=== PATIENT | male | born 1950 | race Caucasian/White ===

== ENCOUNTER 2020-09-26 14:18 | Emergency (ER) | payer MEDICARE, OTHER ==
[~2020-09-26] VITALS: Ht 172.7 cm; Wt 56.6 kg
[2020-09-26 14:45] LABS: HEMATOCRIT 38 % (40-54); HEMOGLOBIN 13.3 G/DL (13.3-17.7); MEAN CORPUSCULAR HEMOGLOBIN 33 PG (25-34); MEAN CORPUSCULAR HGB CONC 35 G/DL (32-36); MEAN CORPUSCULAR VOLUME 94 FL (80-99); MEAN PLATELET VOLUME 9.4 FL (7.4-10.4); NEUTROPHILS % (AUTO) 81 % (42-75); PLATELET COUNT 313 10^3/uL (130-400); WHITE BLOOD COUNT 14.7 10^3/uL (4.3-11.0)
[2020-09-26] MEDS ORDERED: NS IV 500 ML 500 ML IV ONE (14:45)
[2020-09-26 14:46] LABS: BASOPHILS % (AUTO) 0 % (0-10); EOSINOPHILS # (AUTO) 0.1 10^3/uL (0.0-0.3); EOSINOPHILS % (AUTO) 0 % (0-10); LYMPHOCYTES # (AUTO) 1.5 X 10^3 (1.0-4.0); LYMPHOCYTES % (AUTO) 11 % (12-44); MONOCYTES # (AUTO) 1.1 X 10^3 (0.0-1.0); MONOCYTES % (AUTO) 7 % (0-12)
--- NOTE | 2020-09-26 15:02 | ED Fall/Injury ---
General Chief Complaint: Trauma-Non Activation Stated Complaint: FALL; BACK INJ Nursing Triage Note: see triage note Source: patient Exam Limitations: no limitations History of Present Illness Date Seen by Provider: Sep 26, 2020 Time Seen by Provider: 14:25 Initial Comments Here with report of right posterior rib pain. Seen at urgent care clinic and found to have 2 rib fractures. Radiology recommended further work-up including CT scan due to concerns about air and or pathological fracture. Patient has onset of dementia. He is able answer questions but is a little confused about history and time. Unsure if he hit his head. Denies neck pain. Denies injuries otherwise. Patient was able to ambulate to the room without difficulty. Obviously has tenderness to the right mid posterior chest wall with bruising reported. Occurred: this morning Severity: moderate Injuries/Pain Location: chest, back Context: unknown Loss of Consciousness: no loss of consciousness Modifying Factors: Worse With Movement; Improves With Rest Associated Symptoms (Fall): Headache; No Neck Pain, No Shortness of Air, No Slurred Speech, No Trouble Walking Allergies and Home Medications Allergies Coded Allergies: No Known Drug Allergies (Unverified , 09/26/20) Patient Home Medication List Home Medication List Reviewed: Yes Review of Systems Review of Systems Constitutional: see HPI; No chills, No fever Eyes: No Symptoms Reported Ears, Nose, Mouth, Throat: no symptoms reported Respiratory: No cough, No short of breath Cardiovascular: chest pain (Posterior chest wall on right); No palpitations Gastrointestinal: No abdominal pain, No nausea, No vomiting Genitourinary: no symptoms reported Musculoskeletal: back pain Skin: change in color; No lesions Psychiatric/Neurological: Headache; Denies Weakness Past Dyyvsez-Ksthdj-Qrfvwk Hx Past Med/Social Hx: Reviewed Nursing Past Med/Soc Hx Patient Social History Alcohol Use: Denies Use Smoking Status: Never a Smoker 2nd Hand Smoke Exposure: No Recent Infectious Disease Expo: No Recent Hopitalizations: No Seasonal Allergies Seasonal Allergies: No Past Medical History Surgeries: Yes (bilat hip surgery) Bowel Surgery, Orthopedic, Tonsillectomy Respiratory: No Cardiac: Yes Hypertension Neurological: No Genitourinary: No Gastrointestinal: No Musculoskeletal: No Endocrine: No HEENT: No Cancer: No Psychosocial: No Integumentary: No Family Medical History Reviewed Nursing Family Hx Physical Exam Vital Signs Vital Signs - First Documented 09/26/20 14:20 Temp 36.8 Pulse 86 Resp 16 B/P (MAP) 187/81 (116) Pulse Ox 97 O2 Delivery Room Air Capillary Refill : Less Than 3 Seconds Height, Weight, BMI Height: '" Weight: lbs. oz. kg; 18.00 BMI Method: General Appearance: WD/WN, no apparent distress HEENT: PERRL/EOMI, TMs normal, pharynx normal Neck: full range of motion, supple Cardiovascular: regular rate, rhythm, no murmur Respiratory: lungs clear, other (Tender posterior right chest wall. Bruising noted mid ribs right lateral posterior.) Gastrointestinal: non tender, soft Back: normal inspection, no CVA tenderness, no vertebral tenderness Extremities: non-tender, normal inspection Neurologic/Psychiatric: alert, oriented x 3 Skin: warm/dry, ecchymosis (As noted above) Progress/Results/Core Measures Results/Orders Lab Results Laboratory Tests Test 09/26/20 14:26 09/26/20 15:35 Range/Units White Blood Count 14.7 H 4.3-11.0 10^3/uL Red Blood Count 4.04 L 4.35-5.85 10^6/uL Hemoglobin 13.3 13.3-17.7 G/DL Hematocrit 38 L 40-54 % Mean Corpuscular Volume 94 80-99 FL Mean Corpuscular Hemoglobin 33 25-34 PG Mean Corpuscular Hemoglobin Concent 35 32-36 G/DL Red Cell Distribution Width 12.3 10.0-14.5 % Platelet Count 313 130-400 10^3/uL Mean Platelet Volume 9.4 7.4-10.4 FL Immature Granulocyte % (Auto) 1 % Neutrophils (%) (Auto) 81 H 42-75 % Lymphocytes (%) (Auto) 11 L 12-44 % Monocytes (%) (Auto) 7 0-12 % Eosinophils (%) (Auto) 0 0-10 % Basophils (%) (Auto) 0 0-10 % Neutrophils # (Auto) 12.0 H 1.8-7.8 X 10^3 Lymphocytes # (Auto) 1.5 1.0-4.0 X 10^3 Monocytes # (Auto) 1.1 H 0.0-1.0 X 10^3 Eosinophils # (Auto) 0.1 0.0-0.3 10^3/uL Basophils # (Auto) 0.0 0.0-0.1 10^3/uL Immature Granulocyte # (Auto) 0.1 0.0-0.1 10^3/uL Neutrophils % (Manual) 80 % Lymphocytes % (Manual) 11 % Monocytes % (Manual) 8 % Eosinophils % (Manual) 1 % Sodium Level 135 135-145 MMOL/L Potassium Level 4.1 3.6-5.0 MMOL/L Chloride Level 95 L 98-107 MMOL/L Carbon Dioxide Level 27 21-32 MMOL/L Anion Gap 13 5-14 MMOL/L Blood Urea Nitrogen 16 7-18 MG/DL Creatinine 0.92 0.60-1.30 MG/DL Estimat Glomerular Filtration Rate > 60 BUN/Creatinine Ratio 17 Glucose Level 122 H 70-105 MG/DL Calcium Level 10.1 8.5-10.1 MG/DL Corrected Calcium 9.7 8.5-10.1 MG/DL Total Bilirubin 0.3 0.1-1.0 MG/DL Aspartate Amino Transf (AST/SGOT) 28 5-34 U/L Alanine Aminotransferase (ALT/SGPT) 12 0-55 U/L Alkaline Phosphatase 64 40-136 U/L C-Reactive Protein 0.59 H <0.50 MG/DL Total Protein 7.1 6.4-8.2 GM/DL Albumin 4.5 3.2-4.5 GM/DL Urine Color YELLOW Urine Clarity CLEAR Urine pH 7.0 5-9 Urine Specific Nada 1.015 L 1.016-1.022 Urine Protein NEGATIVE NEGATIVE Urine Glucose (UA) NEGATIVE NEGATIVE Urine Ketones NEGATIVE NEGATIVE Urine Nitrite NEGATIVE NEGATIVE Urine Bilirubin NEGATIVE NEGATIVE Urine Urobilinogen 0.2 < = 1.0 MG/DL Urine Leukocyte Esterase NEGATIVE NEGATIVE Urine RBC (Auto) NEGATIVE NEGATIVE Urine RBC NONE /HPF Urine WBC NONE /HPF Urine Crystals NONE /LPF Urine Bacteria NEGATIVE /HPF Urine Casts NONE /LPF Urine Mucus NEGATIVE /LPF Urine Culture Indicated NO My Orders Orders - ANDREA NAVA MD Cbc With Automated Diff (09/26/20 14:35) Comprehensive Metabolic Panel (09/26/20 14:35) Ua Culture If Indicated (09/26/20 14:35) Ed Iv/Invasive Line Start (09/26/20 14:35) Ns Iv 500 Ml (Sodium Chloride 0.9%) (09/26/20 14:45) Crp Fs (09/26/20 14:26) Manual Differential (09/26/20 14:26) Ct Head/Cervical Spine Wo (09/26/20 15:13) Ct Chest W (09/26/20 15:13) Iohexol Injection (Omnipaque 350 Mg/Ml 1 (09/26/20 15:45) Received Contrast (Hold Metformin- Contr (09/26/20 15:45) Sodium Chloride Flush (Catheter Flush Sy (09/26/20 15:45) Ns (Ivpb) (Sodium Chloride 0.9% Ivpb Bag (09/26/20 15:45) Medications Given in ED Current Medications Medications Dose Ordered Sig/Janiya Route Start Time Stop Time Status Last Admin Dose Admin Iohexol 75 ml ONCE ONCE IV 09/26/20 15:45 09/26/20 15:46 DC 09/26/20 16:01 75 ML Sodium Chloride 10 ml NEEDED PRN IV 09/26/20 15:45 09/26/20 16:01 10 ML Sodium Chloride 100 ml ONCE ONCE IV 09/26/20 15:45 09/26/20 15:46 DC 09/26/20 16:01 100 ML Sodium Chloride 500 ml @ 0 mls/hr Q0M ONCE IV 09/26/20 14:45 09/26/20 14:46 DC 09/26/20 14:44 1,000 MLS/HR Vital Signs/I&O 09/26/20 14:20 Temp 36.8 Pulse 86 Resp 16 B/P (MAP) 187/81 (116) Pulse Ox 97 O2 Delivery Room Air Blood Pressure Mean: 116 Progress Progress Note : Progress Note Seen and evaluated. IV and labs ordered. We will get CT of the head neck. We will get CT of the chest but will wait for kidney function to determine availability of contrast as this is not recent trauma. Monitor patient. 1630: I have discussed the case with Dr. Jane, trauma surgeon on-call and Dr. Peters. We have significant shortage of beds at [place] and are considering transfer to [facility]. Both those providers are on at both locations. 1636: Both agree that [facility] is appropriate and capable for the level of care needed for this patient and I agree. This was discussed with the patient and family who agree. We did place him on oxygen at 2 L just to improve reabsorptio n. Patient is otherwise comfortable currently. Patient will go by EMS. Diagnostic Imaging Diagonstic Imaging: CT Plain Films/CT/US/NM/MRI: c-spine, head Comments NAME: [facility] REC#: [id number] PT STATUS: REG ER : 1950 PHYSICIAN: ANDREA NAVA MD ADMIT DATE: 09/26/20/ER FS Draft Date of Exam:09/26/20 CT HEAD/CERVICAL SPINE WO PROCEDURE: CT head and CT cervical spine without contrast. TECHNIQUE: Multiple contiguous axial images were obtained through the brain and cervical spine without the use of intravenous contrast. Sagittal and coronal reformations through the cervical spine were then performed. Auto Exposure Controls were utilized during the CT exam to meet ALARA standards for radiation dose reduction. INDICATION: Fall. Head injury. FINDINGS: CT HEAD: There is no intracranial hemorrhage. Ventricles and cortical gyral pattern are normal. No extra-axial fluid collection. Basal cisterns are clear. There is mucosal edema within the maxillary sinuses bilaterally as well as the ethmoid sinuses. There is considerable mucosal thickening of the nasal turbinates as well. The mastoid air cells are clear. No calvarial fractures. IMPRESSION: 1. Findings consistent with rather marked sinusitis. 2. No acute intracranial abnormalities or calvarial fractures. CT CERVICAL SPINE: Sagittal and coronal reformatted images show good alignment. Body height is well maintained. Odontoid is intact. The atlantoaxial joint is in good alignment. There is rather diffuse advanced cervical disc disease and facet disease. There are no acute fractures demonstrated. The prevertebral soft tissues are not widened. IMPRESSION: 1. Cervical spondylosis with no acute changes. Dictated on workstation # [id number] Dict: 09/26/20 1620 Trans: 09/26/20 1629 [id number] Interpreted by: ROGERS PA MD Electronically signed by: Diagonstic Imaging: CT Plain Films/CT/US/NM/MRI: chest Comments [facility] [place] NAME: [facility] REC#: [id number] PT STATUS: REG ER : 1950 PHYSICIAN: ANDREA NAVA MD ADMIT DATE: 09/26/20/ER FS Draft Date of Exam:09/26/20 CT CHEST W PROCEDURE: CT chest with contrast only. TECHNIQUE: Multiple contiguous axial images were obtained through the chest after administration of intravenous contrast. Auto Exposure Controls were utilized during the CT exam to meet ALARA standards for radiation dose reduction. INDICATION: Fall with back pain. FINDINGS: There are displaced rib fractures posteriorly on the right from the 7th through the 11th rib. Some ribs show multiple fractures. There is moderate hemothorax with small amount of free air. There is a subcutaneous air along the right chest wall. No evidence of a clavicular or scapular fracture. There is right lower lobe atelectasis with possible contusion. Left lung is well-aerated and clear. Sagittal reformatted images show good alignment of the thoracic spine. Body height is well maintained. No compression fracture. No mediastinal or hilar adenopathy. No evidence of liver laceration. IMPRESSION: Displaced and somewhat comminuted posterior rib fractures on the right from the 7th through the 11th. Associated hemothorax with small pneumothorax. Dictated on workstation # [id number] Dict: 09/26/20 1615 Trans: 09/26/20 1621 [facility] [id number] Interpreted by: ROGERS PA MD Electronically signed by: Departure Impression Primary Impression: Multiple fractures of ribs of right side Qualified Codes: S22.41XA - Multiple fractures of ribs, right side, initial encounter for closed fracture Additional Impressions: Hemopneumothorax, right Dementia Qualified Codes: F03.90 - Unspecified dementia without behavioral disturbanc e Disposition: XF [facility]-TRM HOSP Condition: Stable Transfer Transfer Reason: Diversion Time Spoke to Accepting Phy: 16:32 Transfer Time: 16:36 [facility] Method [facility] Transfer: EMS Departure-Patient Inst. Referrals: ANN SALDANA MD (PCP/Family) Primary Care Physician ANDREA NAVA MD Sep 26, 2020 15:02
[2020-09-26 15:04] LABS: SODIUM 135 MMOL/L (135-145)
[2020-09-26 15:05] LABS: ALANINE AMINOTRANSFERASE 12 U/L (0-55); ALBUMIN 4.5 GM/DL (3.2-4.5); ALKALINE PHOSPHATASE 64 U/L (40-136); BILIRUBIN,TOTAL 0.3 MG/DL (0.1-1.0); BUN/CREATININE RATIO 17; CALCIUM 10.1 MG/DL (8.5-10.1); CARBON DIOXIDE 27 MMOL/L (21-32); CHLORIDE 95 MMOL/L (98-107); CREATININE SERUM 0.92 MG/DL (0.60-1.30); GFR ESTIMATED > 60; GLUCOSE 122 MG/DL (70-105); POTASSIUM 4.1 MMOL/L (3.6-5.0); TOTAL PROTEIN 7.1 GM/DL (6.4-8.2)
[2020-09-26 15:10] LABS: EOSINOPHILS % (MANUAL) 1 %; LYMPHOCYTES % (MANUAL) 11 %; MONOCYTES % (MANUAL) 8 %; NEUTROPHILS % (MANUAL) 80 %
[2020-09-26] MEDS ORDERED: NS 100 ML (IVPB) BAG IV ONE (15:45)
[2020-09-26] MEDS ORDERED: HOLD METFORMIN - RECEIVED CONTRAST 20 ML VIAL IV SCH (15:45)
[2020-09-26] MEDS ORDERED: CATHETER FLUSH 10 ML SYR IV PRN (15:45)
[2020-09-26] MEDS ORDERED: IOHEXOL 350 MG/ML 100 ML (OMNIPAQUE 350) VIAL IV ONE (15:45)
[2020-09-26 15:47] LABS: BILIRUBIN,URINE NEGATIVE (NEGATIVE); CLARITY,URINE CLEAR; COLOR,URINE YELLOW; GLUCOSE, URINE (UA) NEGATIVE (NEGATIVE); KETONES,URINE NEGATIVE (NEGATIVE); LEUKOCYTE ESTERASE ,URINE NEGATIVE (NEGATIVE); NITRITE,URINE NEGATIVE (NEGATIVE); PROTEIN,URINE NEGATIVE (NEGATIVE)
[2020-09-26 15:48] LABS: BACTERIA,URINE NEGATIVE /HPF
--- NOTE | 2020-09-26 16:22 | Diagnostic Imaging Report ---
PROCEDURE: CT chest with contrast only. TECHNIQUE: Multiple contiguous axial images were obtained through the chest after administration of intravenous contrast. Auto Exposure Controls were utilized during the CT exam to meet ALARA standards for radiation dose reduction. INDICATION: Fall with back pain. FINDINGS: There are displaced rib fractures posteriorly on the right from the 7th through the 11th rib. Some ribs show multiple fractures. There is moderate hemothorax with small amount of free air. There is a subcutaneous air along the right chest wall. No evidence of a clavicular or scapular fracture. There is right lower lobe atelectasis with possible contusion. Left lung is well-aerated and clear. Sagittal reformatted images show good alignment of the thoracic spine. Body height is well maintained. No compression fracture. No mediastinal or hilar adenopathy. No evidence of liver laceration. IMPRESSION: Displaced and somewhat comminuted posterior rib fractures on the right from the 7th through the 11th. Associated hemothorax with small pneumothorax. Dictated by: Dictated on workstation # [id number]
--- NOTE | 2020-09-26 16:26 | Diagnostic Imaging Report ---
PROCEDURE: CT head and CT cervical spine without contrast. TECHNIQUE: Multiple contiguous axial images were obtained through the brain and cervical spine without the use of intravenous contrast. Sagittal and coronal reformations through the cervical spine were then performed. Auto Exposure Controls were utilized during the CT exam to meet ALARA standards for radiation dose reduction. INDICATION: Fall. Head injury. FINDINGS: CT HEAD: There is no intracranial hemorrhage. Ventricles and cortical gyral pattern are normal. No extra-axial fluid collection. Basal cisterns are clear. There is mucosal edema within the maxillary sinuses bilaterally as well as the ethmoid sinuses. There is considerable mucosal thickening of the nasal turbinates as well. The mastoid air cells are clear. No calvarial fractures. IMPRESSION: 1. Findings consistent with rather marked sinusitis. 2. No acute intracranial abnormalities or calvarial fractures. CT CERVICAL SPINE: Sagittal and coronal reformatted images show good alignment. Body height is well maintained. Odontoid is intact. The atlantoaxial joint is in good alignment. There is rather diffuse advanced cervical disc disease and facet disease. There are no acute fractures demonstrated. The prevertebral soft tissues are not widened. IMPRESSION: 1. Cervical spondylosis with no acute changes. Dictated by: Dictated on workstation # [id number]
[2020-09-26 17:33] VITALS: BP 171/89
== END 2020-09-26 17:35 | disposition short-term general hospital (02) ==
LOC: ER FS 14:22
DX: S22.41XA Multiple fractures of ribs, right side, initial encounter for closed fracture (principal); J94.2 Hemothorax; F03.90 Unspecified dementia, unspecified severity, without behavioral disturbance, psychotic disturbance, mood disturbance, and anxiety; I10 Essential (primary) hypertension; X58.XXXA Exposure to other specified factors, initial encounter
CPT/HCPCS: 36415; 70450; 71260; 72125; 80053; 81000; 85007; 85025; 85027; 86141

== ENCOUNTER 2020-11-22 16:44 | Emergency (ER) | payer MEDICARE ==
[~2020-11-22] VITALS: Ht 172.7 cm; Wt 54.0 kg
[2020-11-22 17:06] LABS: BASOPHILS % (AUTO) 1 % (0-10); EOSINOPHILS # (AUTO) 0.7 10^3/uL (0.0-0.3); EOSINOPHILS % (AUTO) 8 % (0-10); HEMATOCRIT 40 % (40-54); HEMOGLOBIN 13.6 G/DL (13.3-17.7); LYMPHOCYTES # (AUTO) 1.8 X 10^3 (1.0-4.0); LYMPHOCYTES % (AUTO) 20 % (12-44); MEAN CORPUSCULAR HEMOGLOBIN 32 PG (25-34); MEAN CORPUSCULAR HGB CONC 34 G/DL (32-36); MEAN CORPUSCULAR VOLUME 95 FL (80-99); MEAN PLATELET VOLUME 8.7 FL (7.4-10.4); MONOCYTES # (AUTO) 0.8 X 10^3 (0.0-1.0); MONOCYTES % (AUTO) 9 % (0-12); NEUTROPHILS # (AUTO) 5.4 X 10^3 (1.8-7.8); NEUTROPHILS % (AUTO) 62 % (42-75); PLATELET COUNT 296 10^3/uL (130-400); WHITE BLOOD COUNT 8.7 10^3/uL (4.3-11.0)
[2020-11-22 17:23] LABS: ALBUMIN 4.3 GM/DL (3.2-4.5); BILIRUBIN,TOTAL 0.3 MG/DL (0.1-1.0); CALCIUM 9.4 MG/DL (8.5-10.1); CREATININE SERUM 0.83 MG/DL (0.60-1.30); POTASSIUM 3.9 MMOL/L (3.6-5.0); TOTAL PROTEIN 6.8 GM/DL (6.4-8.2)
--- NOTE | 2020-11-22 17:24 | ED Abdominal Pain ---
General Chief Complaint: Abdominal/GI Problems Stated Complaint: RT GROIN PAIN Nursing Triage Note: Patient presents to the ED via EMS with c/o of right groin pain. He reports that he was walking when the area popped out. He reports that he is having some pain in that area as well but denies any trauma or injury to the area. Source of Information: Patient, EMS Exam Limitations: No Limitations History of Present Illness Date Seen by Provider: Nov 22, 2020 Time Seen by Provider: 16:46 Initial Comments 70-year-old male with past medical history of dementia coming in via EMS from his assisted living facility due to a mass in his lower abdomen. He states he was walking, felt a bulge in his lower abdomen with some pain, and noticed a bulge that he had never seen before. He immediately called EMS and they sent him here. He did not fall or have any trauma. He is unsure when his last bowel movement was. He states it does not hurt to urinate. EMS states he is otherwise confused, but was told that this is his baseline with his dementia. The patient believes this occurred roughly 2 hours prior to arrival. His pain is mild, intermittent, and worse when he touches it. Better when he is not alejandrina jenelle it. Allergies and Home Medications Allergies Coded Allergies: No Known Drug Allergies (Unverified , 09/26/20) Patient Home Medication List Home Medication List Reviewed: Yes Review of Systems Review of Systems Constitutional: No fever EENTM: No Blurred Vision Respiratory: Denies Cough, Denies Shortness of Air Cardiovascular: Denies Chest Pain Gastrointestinal: Abdominal Pain; Denies Nausea, Denies Vomiting Genitourinary: Denies Burning, Denies Frequency Musculoskeletal: No back pain Skin: No rash Psychiatric/Neurological: Denies Anxiety, Denies Depressed Endocrine: No Symptoms Reported Hematologic/Lymphatic: No Symptoms Reported All Other Systems Reviewed Negative Unless Noted: Yes Past Tzdiiov-Nivnjf-Hunday Hx Patient Social History Tobacco Use?: No Tobacco type used: Cigarettes Smoking Status: Former Smoker Use of E-Cig and/or Vaping dev: No Substance use?: No Alcohol Use?: Yes Alcohol Frequency: Once in a while Pt feels they are or have been: No Seasonal Allergies Seasonal Allergies: No Past Medical History Surgeries: Yes (bilat hip surgery) Bowel Surgery, Orthopedic, Tonsillectomy Respiratory: No Cardiac: Yes Hypertension Neurological: No Genitourinary: No Gastrointestinal: No Musculoskeletal: No Endocrine: No HEENT: No Cancer: No Psychosocial: No Integumentary: No Physical Exam Vital Signs Vital Signs - First Documented 11/22/20 17:02 Temp 37.0 Pulse 75 Resp 16 B/P (MAP) 164/75 (104) Pulse Ox 96 O2 Delivery Room Air Capillary Refill : Less Than 3 Seconds Height/Weight/BMI Height: '" Weight: lbs. oz. kg; 18.00 BMI Method: General Appearance: WD/WN, no apparent distress HEENT: PERRL/EOMI, normal ENT inspection, pharynx normal Neck: non-tender, full range of motion, supple Respiratory: chest non-tender, lungs clear, normal breath sounds, no respiratory distress, no accessory muscle use Cardiovascular: regular rate, rhythm, no edema, no murmur Gastrointestinal: normal bowel sounds, soft; No no pulsatile mass, No distended, No guarding, No rebound; tenderness, mass (Mass to his right lower abdomen which could be a hernia given the story, he was mildly tender over it) Genital/Rectal: other (Testicles appear normal and are nontender) Extremities: normal range of motion, non-tender, normal inspection, no pedal edema, no calf tenderness Back: normal inspection, no CVA tenderness, no vertebral tenderness Neurologic/Psychiatric: no motor/sensory deficits, alert, normal mood/affect, other (Oriented to self only) Skin: normal color, warm/dry Lymphatic: no adenopathy Focused Exam Lactate Level 11/22/20 16:59: Lactic Acid Level 0.85 Lactic Acid Level Laboratory Tests Test 11/22/20 16:59 Lactic Acid Level 0.85 MMOL/L (0.50-2.00) Progress/Results/Core Measures Results/Orders Lab Results Laboratory Tests Test 11/22/20 16:59 Range/Units White Blood Count 8.7 4.3-11.0 10^3/uL Red Blood Count 4.20 L 4.35-5.85 10^6/uL Hemoglobin 13.6 13.3-17.7 G/DL Hematocrit 40 40-54 % Mean Corpuscular Volume 95 80-99 FL Mean Corpuscular Hemoglobin 32 25-34 PG Mean Corpuscular Hemoglobin Concent 34 32-36 G/DL Red Cell Distribution Width 12.1 10.0-14.5 % Platelet Count 296 130-400 10^3/uL Mean Platelet Volume 8.7 7.4-10.4 FL Immature Granulocyte % (Auto) 0 % Neutrophils (%) (Auto) 62 42-75 % Lymphocytes (%) (Auto) 20 12-44 % Monocytes (%) (Auto) 9 0-12 % Eosinophils (%) (Auto) 8 0-10 % Basophils (%) (Auto) 1 0-10 % Neutrophils # (Auto) 5.4 1.8-7.8 X 10^3 Lymphocytes # (Auto) 1.8 1.0-4.0 X 10^3 Monocytes # (Auto) 0.8 0.0-1.0 X 10^3 Eosinophils # (Auto) 0.7 H 0.0-0.3 10^3/uL Basophils # (Auto) 0.0 0.0-0.1 10^3/uL Immature Granulocyte # (Auto) 0.0 0.0-0.1 10^3/uL Sodium Level 135 135-145 MMOL/L Potassium Level 3.9 3.6-5.0 MMOL/L Chloride Level 99 98-107 MMOL/L Carbon Dioxide Level 26 21-32 MMOL/L Anion Gap 10 5-14 MMOL/L Blood Urea Nitrogen 14 7-18 MG/DL Creatinine 0.83 0.60-1.30 MG/DL Estimat Glomerular Filtration Rate 91 BUN/Creatinine Ratio 17 Glucose Level 110 H 70-105 MG/DL Lactic Acid Level 0.85 0.50-2.00 MMOL/L Calcium Level 9.4 8.5-10.1 MG/DL Corrected Calcium 9.2 8.5-10.1 MG/DL Total Bilirubin 0.3 0.1-1.0 MG/DL Aspartate Amino Transf (AST/SGOT) 15 5-34 U/L Alanine Aminotransferase (ALT/SGPT) 7 0-55 U/L Alkaline Phosphatase 89 40-136 U/L Total Protein 6.8 6.4-8.2 GM/DL Albumin 4.3 3.2-4.5 GM/DL My Orders Orders - ROLAND MARIE MD Comprehensive Metabolic Panel (11/22/20 16:53) Ed Iv/Invasive Line Start (11/22/20 16:53) Cbc With Automated Diff (11/22/20 16:53) Ct Abdomen/Pelvis W (11/22/20 16:53) Lactic Acid Analyzer (11/22/20 16:53) Iohexol Injection (Omnipaque 350 Mg/Ml 1 (11/22/20 17:30) Received Contrast (Hold Metformin- Contr (11/22/20 17:30) Sodium Chloride Flush (Catheter Flush Sy (11/22/20 17:30) Ns (Ivpb) (Sodium Chloride 0.9% Ivpb Bag (11/22/20 17:30) Medications Given in ED Current Medications Medications Dose Ordered Sig/Janiya Route Start Time Stop Time Status Last Admin Dose Admin Iohexol 100 ml ONCE ONCE IV 11/22/20 17:30 11/22/20 17:31 UNV 11/22/20 17:49 100 ML Sodium Chloride 10 ml NEEDED PRN IV 11/22/20 17:30 UNV 11/22/20 17:49 10 ML Sodium Chloride 100 ml ONCE ONCE IV 11/22/20 17:30 11/22/20 17:31 UNV 11/22/20 17:49 100 ML Vital Signs/I&O 11/22/20 17:02 Temp 37.0 Pulse 75 Resp 16 B/P (MAP) 164/75 (104) Pulse Ox 96 O2 Delivery Room Air Blood Pressure Mean: 104 Progress Progress Note : Progress Note 70-year-old male with above history coming in due to a new mass in his right l ower abdomen. ABCs were intact and vitals were stable on presentation. Physical exam with after mentioned mass that is mildly tender on exam. I suspect this is a hernia. I was unable to really reduce it and given the pain, we will get basic labs including lactate and obtain a CT to assess for signs of obstruction. Upon talking with the patient, it is clear that he does have de mentia, and he although hides it fairly well, really is unsure what is going on. Basic labs reassuring including normal lactate. CT imaging concerning for hernia that goes into his scrotum. No signs of obstruction on CT or clinically. I do not believe he needs this emergently taken care of, and I believe he can follow-up with a general surgeon this week. I will give him information on who to call. I believe he is stable for discharge. He was sent home with strict return precautions. Diagnostic Imaging Diagonstic Imaging: CT Plain Films/CT/US/NM/MRI: abdomen, pelvis Comments [facility], [place] NAME: HELEN LUQUE [facility] REC#: [id number] PT STATUS: REG ER : 1950 PHYSICIAN: ROLAND MARIE MD ADMIT DATE: 11/22/20/ER FS Draft Date of Exam:11/22/20 CT ABDOMEN/PELVIS W EXAMINATION: CT abdomen and pelvis with intravenous contrast. TECHNIQUE: Multiple contiguous axial images were obtained through the abdomen and pelvis after the uneventful administration of intravenous contrast. All CT scans use one or more of the following dose optimizing techniques: automated exposure control, MA and/or KvP adjustment based on patient size and exam type or iterative reconstruction. HISTORY: Right lower quadrant abdominal pain. COMPARISON: None available. FINDINGS: The heart is unremarkable. The included lung bases are clear. The liver, spleen, pancreas, adrenal glands and kidneys have a normal appearance. There is no pathologically enlarged mesenteric or retroperitoneal adenopathy. The bowel loops are nondilated. Diverticuli are seen in the sigmoid colon without evidence of acute diverticulitis. There is no free fluid or free air. No acute osseous abnormality. There is calcified aortic and iliac atherosclerotic plaque without aneurysm. Ureters and bladder are grossly normal. A right inguinal hernia is visualized containing loops of bowel. No associated obstruction is seen. There is no free air, loculated collection or adenopathy in the pelvis. IMPRESSION: Small to moderate right inguinal hernia containing loops of bowel. No associated obstruction is seen. Consider surgical consultation. Dictated on workstation # [id number] Dict: 11/22/203 Trans: 11/22/201817 [facility] [id number] Interpreted by: SARAH WINTERS DO Electronically signed by: Departure Impression Primary Impression: Hernia Additional Impression: Abdominal pain Qualified Codes: R10.31 - Right lower quadrant pain Disposition: 01 HOME, SELF-CARE Condition: Stable Departure-Patient Inst. Decision time for Depature: 18:25 Referrals: ANN SALDANA MD (PCP/Family) Primary Care Physician JUAN JOSÉ JANE MD Patient Instructions: Abdominal Hernia (DC) Add. Discharge Instructions: You are seen in the emergency department for a new bulge in her right lower abdomen. We did a CT scan showing a hernia that goes into your scrotum. There is no blockage of this. Please call the surgeon Dr. Jane on Tuesday to schedule an appointment to discuss if anything can be done for this. If you have any nausea, vomiting, worsening abdominal pain, or inability to have a bowel movement then please come back to the emergency department. All discharge instructions reviewed with patient and/or family. Voiced understanding. ROLAND MARIE MD Nov 22, 2020 17:24
[2020-11-22] MEDS ORDERED: NS 100 ML (IVPB) BAG IV ONE (17:30)
[2020-11-22] MEDS ORDERED: IOHEXOL 350 MG/ML 100 ML (OMNIPAQUE 350) VIAL IV ONE (17:30)
[2020-11-22] MEDS ORDERED: CATHETER FLUSH 10 ML SYR IV PRN (17:30)
[2020-11-22] MEDS ORDERED: HOLD METFORMIN - RECEIVED CONTRAST 20 ML VIAL IV SCH (17:30)
--- NOTE | 2020-11-22 18:19 | Diagnostic Imaging Report ---
EXAMINATION: CT abdomen and pelvis with intravenous contrast. TECHNIQUE: Multiple contiguous axial images were obtained through the abdomen and pelvis after the uneventful administration of intravenous contrast. All CT scans use one or more of the following dose optimizing techniques: automated exposure control, MA and/or KvP adjustment based on patient size and exam type or iterative reconstruction. HISTORY: Right lower quadrant abdominal pain. COMPARISON: None available. FINDINGS: The heart is unremarkable. The included lung bases are clear. The liver, spleen, pancreas, adrenal glands and kidneys have a normal appearance. There is no pathologically enlarged mesenteric or retroperitoneal adenopathy. The bowel loops are nondilated. Diverticuli are seen in the sigmoid colon without evidence of acute diverticulitis. There is no free fluid or free air. No acute osseous abnormality. There is calcified aortic and iliac atherosclerotic plaque without aneurysm. Ureters and bladder are grossly normal. A right inguinal hernia is visualized containing loops of bowel. No associated obstruction is seen. There is no free air, loculated collection or adenopathy in the pelvis. IMPRESSION: Small to moderate right inguinal hernia containing loops of bowel. No associated obstruction is seen. Consider surgical consultation. Dictated by: Dictated on workstation # [id number]
[2020-11-22 18:52] VITALS: BP 162/75
== END 2020-11-22 18:49 | disposition home or self-care (01) ==
LOC: EDUNIT# 16:44 → ER FS 16:45
DX: K40.90 Unilateral inguinal hernia, without obstruction or gangrene, not specified as recurrent (principal); I10 Essential (primary) hypertension; Z87.891 Personal history of nicotine dependence
CPT/HCPCS: 36415; 74177; 80053; 83605; 85025